=== PATIENT | male | born 2000 | race African-American/Black ===

== ENCOUNTER 2025-03-06 14:10 | Emergency (ER) | payer OTHER ==
[2025-03-06] MEDS ORDERED: Ibuprofen 800 MG TAB ONE (16:04)
== END 2025-03-06 16:10 | disposition home or self-care (01) ==
LOC: ERS 14:10
DX: M54.2 Cervicalgia (principal); M54.9 Dorsalgia, unspecified; V89.2XXA Person injured in unspecified motor-vehicle accident, traffic, initial encounter
CPT/HCPCS: 99283